=== PATIENT | female | born 1980 | race Caucasian/White ===

== ENCOUNTER → 2017-12-20 | Outpatient (CLI) | payer MEDICAID | END | disposition home or self-care (01) | LOC: U/S 09:46 | DX: O26.849 Uterine size-date discrepancy, unspecified trimester (principal); Z3A.00 Weeks of gestation of pregnancy not specified | CPT/HCPCS: 76801; 76817 ==

== ENCOUNTER 2018-09-26 13:00 | Day surgery (SDC) | payer MEDICAID ==
[2018-09-26] MEDS ORDERED: SUGAMMADEX SODIUM 200 MG/2 ML VIAL IV (15:00)
[2018-09-26] MEDS ORDERED: CEFAZOLIN 1 GM INJ (15:00)
[2018-09-26] MEDS ORDERED: ONDANSETRON 4 MG INJ (15:00)
[2018-09-26] MEDS ORDERED: EPHEDrine 25 MG/5 ML SYG (15:00)
[2018-09-26] MEDS ORDERED: ROCURONIUM 50 MG INJ ×2 (15:00→15:14)
[2018-09-26] MEDS ORDERED: PHENYLephrine (100 MCG/ML) 10ML SYG (15:00)
[2018-09-26] MEDS ORDERED: DEXAMETHASONE 4 MG/ML 5 ML INJ (15:00)
[2018-09-26] MEDS ORDERED: METOCLOPRAMIDE 10 MG INJ (15:00)
[2018-09-26] MEDS ORDERED: SEVOFLURANE 15 MIN (15:00)
[2018-09-26] MEDS ORDERED: FENTANYL 100MCG INJ (15:00)
[2018-09-26 15:06] LABS: ADD MAN DIFF? NO
[2018-09-26 15:12] LABS: WHITE BLOOD COUNT 6.8 10^3/ul (4.8-10.8)
[2018-09-26 15:12] LABS: BASOPHILS % 0.6 % (0.0-2.0); EOSINOPHILS # 0.2 10^3/ul (0.0-0.5); EOSINOPHILS % 2.2 % (0.0-7.0); HEMATOCRIT 38.8 % (37.0-47.0); HEMOGLOBIN 13.5 g/dl (12.0-16.0); LYMPHOCYTES # 2.4 10^3/ul (0.8-2.9); MEAN CORPUSCULAR HEMOGLOBIN 30.9 pg (29.0-33.0); MEAN CORPUSCULAR HGB CONC 34.8 g/dl (32.0-37.0); MEAN CORPUSCULAR VOLUME 88.8 fl (82.0-101.0); MEAN PLATELET VOLUME 9.3 fl (7.4-10.4); MONOCYTE # 0.5 10^3/ul (0.3-0.9); MONOCYTES % 6.8 % (0.0-11.0); NEUTROPHIL # 3.7 10^3/ul (1.6-7.5); NEUTROPHILS % 54.1 % (39.0-77.0); PLATELET COUNT 259 10^3/UL (140-415); RED BLOOD COUNT 4.37 10^6/ul (4.20-5.40); RED CELL DISTRIBUTION WIDTH 12.2 % (11.5-14.5)
[2018-09-26] MEDS ORDERED: ROPIVACAINE 0.2% 20 ML VIAL (15:14)
[2018-09-26] MEDS ORDERED: MIDAZOLAM 1 MG/ML 2 ML INJ (15:14)
[2018-09-26] MEDS ORDERED: FENTAnyl 50 MCG/ML VIAL (15:14)
[2018-09-26] MEDS ORDERED: PROPOFOL 20 ML (15:14)
[2018-09-26] MEDS ORDERED: EPHEDrine 25 MG/5 ML SYG IV (18:00)
[2018-09-26] MEDS ORDERED: FENTAnyl 50 MCG/ML VIAL IV ×3 (18:00)
[2018-09-26] MEDS ORDERED: DIPHENHYDRAMINE 50 MG INJ IV (18:00)
[2018-09-26] MEDS ORDERED: OXYCODONE/ACETAMINOPHEN (5/325) TAB PO (18:00)
[2018-09-26] MEDS ORDERED: LABETALOL HCL 20MG INJ IV (18:00)
[2018-09-26] MEDS ORDERED: HYDROmorphONE 1 MG/5 ML IV SYRINGE IV ×3 (18:00)
[2018-09-26] MEDS ORDERED: MEPERIDINE 25 MG INJ IV (18:00)
[2018-09-26] MEDS: BUPIVACAINE 0.25%/EPI (SDV) 30 ML INJ (18:38)
[2018-09-26] MEDS ORDERED: KETOROLAC 30 MG INJ IM (18:51)
[2018-09-26] MEDS: ACETAMINOPHEN 500 MG TAB PO (19:26)
[2018-09-26] MEDS: DOXYCYCLINE 100 MG TAB PO (19:27)
[2018-09-26] MEDS: BUTORPHANOL 2 MG INJ IM (19:28)
[2018-09-26] MEDS: ONDANSETRON 4 MG INJ IV (19:29)
[2018-09-26] MEDS: METOCLOPRAMIDE 10 MG INJ IV (20:10)
== END 2018-09-26 20:30 | disposition home or self-care (01) ==
LOC: SDS 13:00
DX: Z30.2 Encounter for sterilization (principal)
CPT/HCPCS: 58670; 84702; 85025